=== PATIENT | female | born 1935 | race Native Hawaiian/Other Pacific Islander ===

== ENCOUNTER 2017-02-27 16:16 | Outpatient (CLI) | payer OTHER ==
[~2017-02-27 16:16] MED LIST: AMOX875T8 PO; ASA LO-DOSE81 MG; CALCIUM600 M1; DICL1GEL2; EVISTA60 MG; LISI20TA24
== END 2017-02-27 17:25 | disposition home or self-care (01) ==
LOC: LAB 16:16
DX: N39.0 Urinary tract infection, site not specified (principal)
CPT/HCPCS: 87086; 87088

== ENCOUNTER 2017-05-25 16:23 | Outpatient (CLI) | payer OTHER | END 2017-05-25 17:30 | disposition home or self-care (01) | LOC: RAD 16:23 | DX: R59.0 Localized enlarged lymph nodes (principal) ==

== ENCOUNTER 2017-07-10 09:29 | Outpatient (CLI) | payer OTHER | END 2017-07-10 10:30 | disposition home or self-care (01) | LOC: MAMMO 09:29 | DX: Z12.31 Encounter for screening mammogram for malignant neoplasm of breast (principal) ==

== ENCOUNTER 2017-09-22 09:00 | Outpatient (CLI) | payer OTHER | END 2017-09-22 19:24 | disposition home or self-care (01) | LOC: RAD 09:00 | DX: C50.511 Malignant neoplasm of lower-outer quadrant of right female breast (principal); M81.8 Other osteoporosis without current pathological fracture ==

== ENCOUNTER 2018-07-13 10:32 | Outpatient (CLI) | payer OTHER | END 2018-07-13 23:04 | disposition home or self-care (01) | LOC: MAMMO 10:32 | DX: Z12.31 Encounter for screening mammogram for malignant neoplasm of breast (principal) ==

== ENCOUNTER 2018-08-18 10:58 | Outpatient (CLI) | payer OTHER | END 2018-08-18 20:32 | disposition home or self-care (01) | LOC: US 10:58 | DX: M79.89 Other specified soft tissue disorders (principal) ==

== ENCOUNTER 2018-11-17 07:51 | Outpatient (CLI) | payer OTHER ==
[2018-11-17 08:35] LABS: PLATELET COUNT 220 K/uL (152-353)
[2018-11-17 08:44] LABS: POTASSIUM 4.2 mmol/L (3.6-5.2)
== END 2018-11-17 19:12 | disposition home or self-care (01) ==
LOC: LABW 07:51
PROVIDERS: Internal Medicine
DX: I10 Essential (primary) hypertension (principal)
CPT/HCPCS: 36415; 80053; 80061; 81000; 84439; 84443; 85027

== ENCOUNTER 2019-04-07 10:10 | Outpatient (CLI) | payer OTHER ==
[2019-04-07 10:23] LABS: PLATELET COUNT 250 K/uL (152-353)
== END 2019-04-07 20:11 | disposition home or self-care (01) ==
LOC: LABW 10:10
PROVIDERS: Physician Assistant
DX: R53.1 Weakness (principal); M25.50 Pain in unspecified joint
CPT/HCPCS: 36415; 84550; 85027; 85651

== ENCOUNTER 2019-07-15 09:40 | Outpatient (CLI) | payer OTHER | END 2019-07-15 22:03 | disposition home or self-care (01) | LOC: MAMMO 09:40 | DX: Z12.31 Encounter for screening mammogram for malignant neoplasm of breast (principal) ==

== ENCOUNTER 2019-07-26 08:16 | Outpatient (CLI) | payer OTHER ==
[2019-07-26 08:46] LABS: PLATELET COUNT 235 K/uL (152-353)
[2019-07-26 09:08] LABS: POTASSIUM 3.7 mmol/L (3.6-5.2)
== END 2019-07-26 19:28 | disposition home or self-care (01) ==
LOC: LABW 08:16
PROVIDERS: Internal Medicine
DX: Z00.00 Encounter for general adult medical examination without abnormal findings (principal); I10 Essential (primary) hypertension
CPT/HCPCS: 36415; 80053; 80061; 81000; 84439; 84443; 84550; 85027

== ENCOUNTER 2019-10-10 10:32 | Outpatient (CLI) | payer OTHER | END 2019-10-10 21:50 | disposition home or self-care (01) | LOC: RAD 10:32 | DX: Z13.820 Encounter for screening for osteoporosis (principal); N95.8 Other specified menopausal and perimenopausal disorders ==

== ENCOUNTER 2019-10-27 15:45 | Outpatient (CLI) | payer OTHER | END 2019-10-27 20:22 | disposition home or self-care (01) | LOC: LAB 15:45 | DX: N39.0 Urinary tract infection, site not specified (principal) | CPT/HCPCS: 87088 ==

== ENCOUNTER 2020-07-31 10:09 | Outpatient (CLI) | payer OTHER | END 2020-07-31 22:30 | disposition home or self-care (01) | LOC: MAMMO 10:09 | DX: Z12.31 Encounter for screening mammogram for malignant neoplasm of breast (principal) ==

== ENCOUNTER 2020-08-10 07:13 | Outpatient (CLI) | payer OTHER ==
[2020-08-10 08:03] LABS: PLATELET COUNT 211 K/uL (152-353)
[2020-08-10 08:18] LABS: POTASSIUM 3.8 mmol/L (3.6-5.2)
== END 2020-08-10 23:53 | disposition home or self-care (01) ==
LOC: LABW 07:13
PROVIDERS: Internal Medicine
DX: I10 Essential (primary) hypertension (principal); M81.0 Age-related osteoporosis without current pathological fracture; Z85.3 Personal history of malignant neoplasm of breast
CPT/HCPCS: 36415; 80053; 80061; 81000; 82306; 84439; 84443; 85027; 86300

== ENCOUNTER 2020-12-14 07:33 | Outpatient (CLI) | payer OTHER ==
[2020-12-14 07:53] LABS: PLATELET COUNT 215 K/uL (152-353)
[2020-12-14 08:24] LABS: POTASSIUM 3.8 mmol/L (3.6-5.2)
== END 2020-12-14 21:09 | disposition home or self-care (01) ==
LOC: LABW 07:33
PROVIDERS: ATTEND Internal Medicine
DX: Z00.00 Encounter for general adult medical examination without abnormal findings (principal); I10 Essential (primary) hypertension; Z13.820 Encounter for screening for osteoporosis; E55.9 Vitamin D deficiency, unspecified
CPT/HCPCS: 36415; 80053; 80061; 81000; 82306; 84439; 84443; 85027

== ENCOUNTER 2021-08-29 13:35 | Outpatient (CLI) | payer OTHER ==
[2021-08-29 13:57] LABS: PLATELET COUNT 221 K/uL (152-353)
[2021-08-29 14:23] LABS: POTASSIUM 3.8 mmol/L (3.6-5.2)
== END 2021-08-29 19:23 | disposition home or self-care (01) ==
LOC: LAB 13:35
PROVIDERS: ATTEND Internal Medicine
DX: I10 Essential (primary) hypertension (principal); M81.0 Age-related osteoporosis without current pathological fracture
CPT/HCPCS: 80053; 80061; 81000; 84439; 84443; 85027

== ENCOUNTER 2021-09-02 12:46 | Outpatient (CLI) | payer OTHER | END 2021-09-02 19:42 | disposition home or self-care (01) | LOC: MAMMO 12:46 | PROVIDERS: ATTEND Internal Medicine | DX: Z12.31 Encounter for screening mammogram for malignant neoplasm of breast (principal) ==

== ENCOUNTER 2022-01-28 07:50 | Outpatient (CLI) | payer OTHER ==
[2022-01-28 08:27] LABS: PLATELET COUNT 295 K/uL (152-353)
== END 2022-01-28 18:50 | disposition home or self-care (01) ==
LOC: LABW 07:50
PROVIDERS: ATTEND Internal Medicine
DX: I10 Essential (primary) hypertension (principal); M19.90 Unspecified osteoarthritis, unspecified site; M81.0 Age-related osteoporosis without current pathological fracture; Z85.3 Personal history of malignant neoplasm of breast; Z08 Encounter for follow-up examination after completed treatment for malignant neoplasm
CPT/HCPCS: 36415; 80053; 80061; 81000; 84439; 84443; 85027; 86300

== ENCOUNTER 2022-03-26 07:19 | Outpatient (CLI) | payer OTHER ==
[2022-03-26 07:57] LABS: PLATELET COUNT 192 K/uL (152-353)
== END 2022-03-26 19:10 | disposition home or self-care (01) ==
LOC: LABW 07:19
PROVIDERS: ATTEND Internal Medicine
DX: E03.8 Other specified hypothyroidism (principal)
CPT/HCPCS: 36415; 84439; 84443; 85027

== ENCOUNTER 2022-09-10 09:39 | Outpatient (CLI) | payer OTHER | END 2022-09-10 19:36 | disposition home or self-care (01) | LOC: MAMMO 09:39 | PROVIDERS: ATTEND Internal Medicine | DX: Z12.31 Encounter for screening mammogram for malignant neoplasm of breast (principal) ==

== ENCOUNTER 2022-12-15 13:27 | Outpatient (CLI) | payer OTHER ==
[2022-12-15 13:49] LABS: PLATELET COUNT 219 K/uL (152-353)
== END 2022-12-15 20:52 | disposition home or self-care (01) ==
LOC: LAB 13:27
PROVIDERS: ATTEND Internal Medicine
DX: I10 Essential (primary) hypertension (principal)
CPT/HCPCS: 80053; 80061; 81000; 84439; 84443; 85027

== ENCOUNTER 2023-02-26 13:16 | Observation (INO) | payer OTHER ==
[2023-02-26] VITALS (7 sets, daily range): BP systolic 106–222; BP diastolic 48–98; TEMP 97.6–98.1; Ht 167.6 cm; Wt 68.0 kg
[~2023-02-26] VITALS: Ht 167.6 cm; Wt 68.0 kg
[2023-02-26 14:15] LABS: PLATELET COUNT 200 K/uL (152-353)
[2023-02-26 14:30] LABS: POTASSIUM 3.6 mmol/L (3.6-5.2)
[2023-02-26] MEDS ORDERED: EUTHYROX25 MCG PO (18:46)
[2023-02-26] MEDS ORDERED: MOBIC7.5 M1 PO (18:53)
[2023-02-26] MEDS ORDERED: BYSTOLIC5 MG PO (18:54)
[2023-02-27 04:00] VITALS: BP 136/68; TEMP 98.4
[2023-02-27 07:57] LABS: POTASSIUM 4.3 mmol/L (3.6-5.2)
[2023-02-27 08:00] VITALS: BP 181/81; TEMP 98.6
[2023-02-27 10:16] VITALS: BP 180/89; TEMP 98.4
[2023-02-27 16:00] VITALS: BP 161/75; TEMP 98.5
[2023-02-27 20:00] VITALS: BP 198/96; TEMP 98
[2023-02-28] VITALS: BP 113/56; TEMP 98.2
[2023-02-28 04:00] VITALS: BP 166/64; TEMP 98.2
[2023-02-28 08:00] VITALS: BP 177/74; TEMP 98.7
[2023-02-28 12:00] VITALS: BP 159/82; TEMP 99.2
[2023-02-28 16:00] VITALS: BP 146/72; TEMP 98
== END 2023-02-28 18:56 | disposition short-term general hospital (02) ==
LOC: ED 13:16 → MED/SURG 15:32
PROVIDERS: Family Medicine; ADMIT Internal Medicine; ATTEND Internal Medicine
DX: I21.4 Non-ST elevation (NSTEMI) myocardial infarction (principal); I16.0 Hypertensive urgency; R07.89 Other chest pain; E03.8 Other specified hypothyroidism; F41.8 Other specified anxiety disorders; I10 Essential (primary) hypertension; Z79.899 Other long term (current) drug therapy
CPT/HCPCS: 80048; 80053; 80307; 81002; 82550; 84484; 85027; 93005; 96372; 99221; 99284; G0378; J0360; J1650

== ENCOUNTER 2023-05-11 12:43 | Outpatient (CLI) | payer OTHER ==
[~2023-05-11 12:43] MED LIST changes: +BYSTOLIC5 MG PO; +EUTHYROX25 MCG PO; +MOBIC7.5 M1 PO
== END 2023-05-11 21:57 | disposition home or self-care (01) ==
LOC: LAB 12:43
PROVIDERS: ATTEND Internal Medicine
DX: N39.0 Urinary tract infection, site not specified (principal)
CPT/HCPCS: 87088

== ENCOUNTER 2023-05-13 15:55 | Outpatient (CLI) | payer OTHER | END 2023-05-13 19:11 | disposition home or self-care (01) | LOC: CT 15:55 | PROVIDERS: ATTEND Internal Medicine | DX: R31.9 Hematuria, unspecified (principal); M54.59 Other low back pain ==

== ENCOUNTER 2023-05-28 13:28 | Outpatient (CLI) | payer OTHER | END 2023-05-28 20:21 | disposition home or self-care (01) | LOC: US 13:28 | PROVIDERS: ATTEND Nurse Practitioner | DX: N83.201 Unspecified ovarian cyst, right side (principal) ==

== ENCOUNTER 2023-06-17 14:19 | Outpatient (CLI) | payer OTHER ==
[2023-06-17 15:01] LABS: PLATELET COUNT 224 K/uL (152-353)
[2023-06-17 15:03] LABS: POTASSIUM 4.1 mmol/L (3.6-5.2)
== END 2023-06-17 19:08 | disposition home or self-care (01) ==
LOC: LAB 14:19
PROVIDERS: ATTEND Internal Medicine
DX: Z00.00 Encounter for general adult medical examination without abnormal findings (principal); Z13.820 Encounter for screening for osteoporosis; Z79.899 Other long term (current) drug therapy; E55.9 Vitamin D deficiency, unspecified
CPT/HCPCS: 80053; 80061; 81000; 82306; 84439; 84443; 85027

== ENCOUNTER 2023-11-30 13:39 | Outpatient (CLI) | payer OTHER | END 2023-11-30 19:22 | disposition home or self-care (01) | LOC: RESP 13:39 | PROVIDERS: ATTEND Specialist | DX: R42 Dizziness and giddiness (principal); I10 Essential (primary) hypertension; R07.89 Other chest pain ==